=== PATIENT | female | born 1985 | race Caucasian/White ===

== ENCOUNTER 2020-08-15 10:01 | Day surgery (SDCO) | payer OTHER ==
[~2020-08-15 10:01] MED LIST: ABILIFY10 MG PO; ADDERALL 30 MG30 MG PO; ADDERALL XR 2525 MG PO; PRISTIQ100 MG PO
[2020-08-15 10:54] LABS: HCG (URINE) SCREEN NEGATIVE (NEGATIVE)
[2020-08-15] MEDS ORDERED: LAMICTAL100 MG PO (10:54)
[2020-08-15 11:38] LABS: HCT 41.9 % (37.0-47.0); HGB 14.5 g/dl (12.5-16.0); MCH 33.1 pg (25.0-31.0); MCHC 34.6 g/dL (32.0-36.0); MCV 95.7 fL (78.0-100.0); MPV 9.7 fL (6.0-9.5); RBC 4.38 M/uL (4.20-5.40); RDW 12.3 % (11.5-14.0); WBC 9.4 K/uL (4.0-10.5)
[2020-08-15] MEDS ORDERED: IBUPROFEN800 M1 PO (15:04)
[2020-08-15] MEDS ORDERED: COLACE100 MG PO (15:04)
[2020-08-15] MEDS ORDERED: PERCOCET 5-3251 EACH PO (15:04)
[2020-08-15] MEDS ORDERED: ZOFRAN4 M1 PO (15:04)
== END 2020-08-15 17:15 | disposition home or self-care (01) ==
LOC: FSDC 10:01 → FMS 11:30 → FSDC 17:15
PROVIDERS: ADMIT Obstetrics & Gynecology
DX: N93.9 Abnormal uterine and vaginal bleeding, unspecified (principal); K66.0 Peritoneal adhesions (postprocedural) (postinfection); K59.09 Other constipation; N30.10 Interstitial cystitis (chronic) without hematuria; N92.0 Excessive and frequent menstruation with regular cycle; J30.2 Other seasonal allergic rhinitis; F31.9 Bipolar disorder, unspecified; F17.210 Nicotine dependence, cigarettes, uncomplicated; Z20.822 Contact with and (suspected) exposure to COVID-19; Z80.0 Family history of malignant neoplasm of digestive organs; Z87.42 Personal history of other diseases of the female genital tract; Z91.040 Latex allergy status; Z79.899 Other long term (current) drug therapy; Z98.890 Other specified postprocedural states
CPT/HCPCS: 36415; 84703; 86850; 86900; 86901; 93005; G0378; J0690; J1100; J1170; J1885; J2250; J2405; J2704; J2710; J3010; J7120